=== PATIENT | female | born 1980 | race Hispanic/Latino ===

== ENCOUNTER 2020-06-26 14:13 | Emergency (ER) | payer BC ==
--- NOTE | 2020-06-26 14:49 | ER ---
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 Bleeding ca1 controlled. Coronavirus screen: Client denies travel out of the [place] in the last 14 days. At this time, the client does not indicate any symptoms associated with coronavirus-19. Ebola Screen: Patient negative for fever greater than or equal to 101.5 degrees Fahrenheit, and additional compatible Ebola Virus Disease symptoms Patient denies exposure to infectious person. Patient denies travel to an Ebola-affected area in the 21 days before illness onset. No symptoms or risks identified at this time. Complicating Factors: There are no complicating factors for this patient. Initial Sepsis Screen: Does the patient meet any 2 criteria? No. Patient's initial sepsis screen is negative. Does the patient have a suspected source of infection? No. Patient's initial sepsis screen is negative. Risk Assessment: Do you want to hurt yourself or someone else? Patient reports no desire to harm self or others. Onset of symptoms was June 26, 2020. 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 - Social history:: Smoking status: Patient denies any tobacco usage or history of. Screenin:30 Abuse screen: Denies threats or abuse. Nutritional screening: No deficits noted. rb3 Tuberculosis screening: No symptoms or risk factors identified. Fall Risk None identified. Assessment: 14:30 General: Appears in no apparent distress. comfortable, Behavior is calm, cooperative. rb3 Pain: Complains of pain in left hand Pain currently is 4 out of 10 on a pain scale. Neuro: Level of Consciousness is awake, alert, obeys commands, Oriented to person, place, time, situation. Cardiovascular: Capillary refill < 3 seconds Patient's skin is warm and dry. Respiratory: Airway is patent Respiratory effort is even, unlabored, Respiratory pattern is regular, symmetrical. GI: No signs and/or symptoms were reported involving the gastrointestinal system. : No signs and/or symptoms were reported regarding the genitourinary system. Musculoskeletal: Range of motion: Pt. reports pain when she tries to move her thumb. Injury Description: Laceration sustained to Left first web space is bleeding controlled. was sustained 30-60 minutes ago. is bleeding no active bleeding noted. Vital Signs: 14:30 BP 118 / 76; Pulse 81; Resp 16 S; Temp 97.9(TE); Pulse Ox 100% on R/A; Weight 80.74 kg ca1 (R); Height 5 ft. 5 in. (165.10 cm) (R); Pain 8/10; 14:30 Body Mass Index 29.62 (80.74 kg, 165.10 cm) ca1 ED Course: 14:16 Patient arrived in ED. ag5 14:28 Manfred Novoa PA is PHCP. [facility] 14:28 Alon Dudley MD is Attending Physician. [facility] 14:30 Patient has correct armband on for positive identification. Bed in low position. Call rb3 light in reach. Side rails up X 1. Pulse ox on. NIBP on. 14:37 Sonia Chang, RN is Primary Nurse. rb3 14:44 Triage completed. ca1 14:45 Arm band placed on right wrist. ca1 15:14 No provider procedures requiring assistance completed. Patient did not have IV access rb3 during this emergency room visit. Administered Medications: 14:40 Drug: Tetanus-Diphtheria Toxoid Adult 0.5 ml {Diet Aide: [employer]. Exp: rb3 10/01/2021. Lot #: [id number]. } Route: IM; Site: right deltoid; 15:00 Follow up: Response: No adverse reaction rb3 14:45 Drug: Lidocaine (1 %) 20 ml Volume: 20 ml; Route: Infiltration; rb3 Outcome: 14:48 Discharge ordered by . [facility] 15:14 Discharged to home ambulatory. rb3 15:14 Condition: stable 15:14 Discharge instructions given to patient, Instructed on discharge instructions, follow up and referral plans. wound care, Demonstrated understanding of instructions, follow-up care, wound care, Prescriptions given X none 15:15 Patient left the ED. rb3 Signatures: Manfred Novoa PA PA jmm Acob, Cheryl, RN RN ca1 Michael Balbuena ag5 Sonia Chang RN RN rb3
--- NOTE | 2020-06-26 14:49 | EDPHYS ---
Physician Documentation [facility] Name: Gracie Vides Age: 39 yrs Sex: Female : 1980 Arrival Date: 06/26/2020 Time: 14:16 Bed 20 Private MD: ED Physician Alon Dudley HPI: 06/26 14:31 This 39 yrs old Female presents to ER via Unassigned with complaints of jmm Laceration To Hand. 14:31 The patient or guardian reports injury, a laceration. Onset: The symptoms/episode jmm began/occurred acutely, just prior to arrival. Modifying factors: The symptoms are alleviated by nothing, the symptoms are aggravated by movement. Associated signs and symptoms: Pertinent negatives: cyanosis distally, decreased sensation distally, fever, numbness distally, tingling distally. The patient has not experienced similar symptoms in the past. This is a 39 year old female with no chronic medical conditions that presents to the ED with complaints of left hand laceration which occurred just prior to arrival. Patient states she cut her hand while using a knife. Denies other injury. . 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 - Social history:: Smoking status: Patient denies any tobacco usage or history of. ROS: 14:31 Constitutional: Negative for fever, chills, and weight loss, Cardiovascular: Negative jmm for chest pain, palpitations, and edema, Respiratory: Negative for shortness of breath, cough, wheezing, and pleuritic chest pain. 14:31 MS/extremity: Positive for injury or acute deformity, laceration. 14:31 All other systems are negative. Exam: 14:31 Constitutional: This is a well developed, well nourished patient who is awake, alert, jmm and in no acute distress. Head/Face: atraumatic. Eyes: EOMI, no conjunctival erythema appreciated ENT: Moist Mucus Membranes Neck: Trachea midline, Supple Chest/axilla: Normal chest wall appearance and motion. Cardiovascular: Regular rate and rhythm. No edema appreciated Respiratory: Normal respirations, no respiratory distress appreciated Abdomen/GI: Non distended, soft Back: Normal ROM 14:31 MS/ Extremity: Moves all extremities, no obvious deformities appreciated, no edema noted to the lower extremities Neuro: Awake and alert, normal gait Psych: Behavior is normal, Mood is normal, Patient is cooperative and pleasant 14:31 Skin: 1 cm laceration noted to the left 1st web space of the hand. Vital Signs: 14:30 BP 118 / 76; Pulse 81; Resp 16 S; Temp 97.9(TE); Pulse Ox 100% on R/A; Weight 80.74 kg ca1 (R); Height 5 ft. 5 in. (165.10 cm) (R); Pain 8/10; 14:30 Body Mass Index 29.62 (80.74 kg, 165.10 cm) ca1 Laceration: 14:46 Wound Repair of 1cm ( 0.4in ) subcutaneous laceration to Left first web space. Distal jmm neuro/vascular/tendon intact. Anesthesia: Local anesthetic administered with 1 mls of 1% lidocaine. Wound prep: Simple cleansing with betadine by me. Skin closed with 2 5-0 Prolene using simple sutures and sterile technique. Patient tolerated well. MDM: 14:29 Patient medically screened. [facility] 14:46 Data reviewed: vital signs, nurses notes. Counseling: I had a detailed discussion with julian the patient and/or guardian regarding: the historical points, exam findings, and any diagnostic results supporting the discharge/admit diagnosis, the need for outpatient follow up, to return to the emergency department if symptoms worsen or persist or if there are any questions or concerns that arise at home. ED course: Patient given wound return precautions. Patient understood and agrees with the plan of care. . 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 Exp: rb3 10/01/2021. Lot #: [id number]. } Route: IM; Site: right deltoid; 15:00 Follow up: Response: No adverse reaction rb3 14:45 Drug: Lidocaine (1 %) 20 ml Volume: 20 ml; Route: Infiltration; rb3 Disposition: 15:44 Co-signature as Attending Physician, Alon Dudley MD. rn Disposition: 06/26/20 14:48 Discharged to Home. Impression: Hand Laceration. - Condition is Stable. - Discharge Instructions: Laceration Care, Adult. - Medication Reconciliation Form, Thank You Letter, Antibiotic Education, Prescription Opioid Use form. - Follow up: Private Physician; When: 1 week; Reason: Recheck today's complaints, Continuance of care, Re-evaluation by your physician. Signatures: Manfred Novoa PA PA jmm Nieto, Roman, MD MD rn Acob, Bertha RN RN Sonia Cason RN RN rb3 Corrections: (The following items were deleted from the chart) 15:15 14:48 06/26/2020 14:48 Discharged to Home. Impression: Hand Laceration. Condition is rb3 Stable. Forms are Medication Reconciliation Form, Thank You Letter, Antibiotic Education, Prescription Opioid Use. Follow up: Private Physician; When: 1 week; Reason: Recheck today's complaints, Continuance of care, Re-evaluation by your physician. julian
[2020-06-26] MEDS ORDERED: LIDOCAINE 1% 20 ML MDV ONE (14:53)
[2020-06-26] MEDS ORDERED: TETANUS & DIPHTHERIA TOX,ADULT 0.5 ML VIAL ONE (14:54)
[2020-06-26 15:19] VITALS: BP 118/76; TEMP 97.9; O2SAT 100
== END 2020-06-26 15:15 | disposition home or self-care (01) ==
LOC: ER 14:13
PROC: 0JQK0ZZ Repair Left Hand Subcutaneous Tissue and Fascia, Open Approach (ICD-10-PCS; principal; 2020-06-26)
DX: S61.412A Laceration without foreign body of left hand, initial encounter (principal); W26.0XXA Contact with knife, initial encounter; Y93.9 Activity, unspecified; Y92.9 Unspecified place or not applicable; Z23 Encounter for immunization
CPT/HCPCS: 90471; 90714; 99283

== ENCOUNTER 2020-07-04 09:07 | Emergency (ER) | payer BC ==
--- NOTE | 2020-07-04 10:31 | ER ---
Nurse's Notes [facility] Name: Gracie Vides Age: 39 yrs Sex: Female : 1980 Arrival Date: 07/04/2020 Time: 09:13 Bed 23 Private MD: Diagnosis: Encounter for removal of sutures Presentation: 07/04 09:35 Chief complaint: Patient states: needs sutures removed from left hand, had sutures iw placed seven days ago. Coronavirus screen: At this time, the client does not indicate any symptoms associated with coronavirus-19. Ebola Screen: Patient negative for fever greater than or equal to 101.5 degrees Fahrenheit, and additional compatible Ebola Virus Disease symptoms Patient denies exposure to infectious person. Patient denies travel to an Ebola-affected area in the 21 days before illness onset. No symptoms or risks identified at this time. Initial Sepsis Screen: Does the patient meet any 2 criteria? No. Patient's initial sepsis screen is negative. Does the patient have a suspected source of infection? No. Patient's initial sepsis screen is negative. Risk Assessment: Do you want to hurt yourself or someone else? Patient reports no desire to harm self or others. Onset of symptoms was July 04, 2020. 09:35 Method Of Arrival: Ambulatory iw 09:35 Acuity: CLINT 4 iw Triage Assessment: 10:00 General: Appears in no apparent distress. iw 10:00 General: Behavior is calm, cooperative. iw Historical: - Allergies: 09:36 No Known Allergies; iw - Home Meds: 09:36 None [Active]; iw - PMHx: 09:36 None; iw - PSHx: 09:36 None; iw - Immunization history:: Adult Immunizations. - Social history:: Smoking status: Patient denies any tobacco usage or history of. Screenin:47 Abuse screen: Denies threats or abuse. Denies injuries from another. Nutritional iw screening: No deficits noted. Tuberculosis screening: No symptoms or risk factors identified. Fall Risk None identified. Assessment: 10:00 General: Appears in no apparent distress. comfortable, Behavior is calm, cooperative. iw Pain: Denies pain. Neuro: Level of Consciousness is awake, alert, obeys commands, Oriented to person, place, time, situation, Moves all extremities. Cardiovascular: Patient's skin is warm and dry. Respiratory: Respiratory effort is even, unlabored, Respiratory pattern is regular. Derm: Skin is healthy with good turgor. Vital Signs: 09:35 BP 106 / 71; Pulse 89; Resp 16; Temp 98.4; Pulse Ox 100% on R/A; Weight 80.74 kg; iw Height 5 ft. 5 in. (165.10 cm); 09:35 Body Mass Index 29.62 (80.74 kg, 165.10 cm) iw ED Course: 09:13 Patient arrived in ED. as 09:36 Triage completed. iw 09:36 Gail Doyle, RN is Primary Nurse. iw 09:40 Manfred Novoa PA is PHCP. [facility] 09:40 Dane Magdaleno MD is Attending Physician. [facility] 10:00 Arm band placed on. iw 10:47 No provider procedures requiring assistance completed. Patient did not have IV access iw during this emergency room visit. Administered Medications: No medications were administered Outcome: 10:30 Discharge ordered by MD. [facility] 10:47 Discharged to home ambulatory. iw 10:47 Condition: good 10:47 Discharge instructions given to patient. 10:48 Patient left the ED. iw Signatures: Manfred Novoa PA PA Akua Gandhi as Gail Doyle RN RN iw Corrections: (The following items were deleted from the chart) 09:36 09:35 Pulse 89bpm; Resp 16bpm; Pulse Ox 100% RA; Temp 98.4F; 80.74 kg; Height 5 ft. 5 iw in.; BMI: 29.6; iw 20:11 00:00 General: Appears in no apparent distress. comfortable, Behavior is calm, iw cooperative, iw 20: 00:00 Pain: Denies pain. iw iw 20: 00:00 Neuro: Level of Consciousness is awake, alert, obeys commands, Oriented to iw person, place, time, situation, Moves all extremities. iw 20:11 00:00 Cardiovascular: Patient's skin is warm and dry. iw iw 20: 00:00 Respiratory: Respiratory effort is even, unlabored, Respiratory pattern is iw regular, iw 20:11 00:00 Derm: Skin is healthy with good turgor, iw iw
--- NOTE | 2020-07-04 10:32 | EDPHYS ---
Physician Documentation [facility] Name: Gracie Vides Age: 39 yrs Sex: Female : 1980 Arrival Date: 07/04/2020 Time: 09:13 Bed 23 Private MD: ED Physician Dane Magdaleno HPI: 07/04 10:25 This 39 yrs old Female presents to ER via Ambulatory with complaints of Suture jmm Removal. 10:25 The patient has sutures on the left hand. Sutures/dev progress: The patient has no jmm c/o's. The wound is well-healing with no redness, swelling, discharge, or dehiscence reported. The patient has not experienced similar symptoms in the past. Patient received sutures 7 days ago. Denies fever, . Historical: - Allergies: 09:36 No Known Allergies; iw - Home Meds: 09:36 None [Active]; iw - PMHx: 09:36 None; iw - PSHx: 09:36 None; iw - Immunization history:: Adult Immunizations. - Social history:: Smoking status: Patient denies any tobacco usage or history of. ROS: 10:25 Constitutional: Negative for fever, chills, and weight loss, Cardiovascular: Negative jmm for chest pain, palpitations, and edema, Respiratory: Negative for shortness of breath, cough, wheezing, and pleuritic chest pain. 10:25 Skin: Positive for laceration(s). 10:25 All other systems are negative. Exam: 10:25 Constitutional: This is a well developed, well nourished patient who is awake, alert, jmm and in no acute distress. Head/Face: atraumatic. Eyes: EOMI, no conjunctival erythema appreciated ENT: Moist Mucus Membranes Neck: Trachea midline, Supple Chest/axilla: Normal chest wall appearance and motion. Cardiovascular: Regular rate and rhythm. No edema appreciated Respiratory: Normal respirations, no respiratory distress appreciated Abdomen/GI: Non distended, soft Back: Normal ROM 10:25 Skin: well healed laceration noted to the left 1st web space. 10:25 Neuro: Orientation: is normal, Mentation: is normal, Memory: is normal. 10:25 Psych: Behavior/mood is pleasant, cooperative. Vital Signs: 09:35 BP 106 / 71; Pulse 89; Resp 16; Temp 98.4; Pulse Ox 100% on R/A; Weight 80.74 kg; iw Height 5 ft. 5 in. (165.10 cm); 09:35 Body Mass Index 29.62 (80.74 kg, 165.10 cm) iw MDM: 09:43 Patient medically screened. [facility] 10:29 Data reviewed: vital signs, nurses notes. Counseling: I had a detailed discussion with julian the patient and/or guardian regarding: the historical points, exam findings, and any diagnostic results supporting the discharge/admit diagnosis, the need for outpatient follow up, to return to the emergency department if symptoms worsen or persist or if there are any questions or concerns that arise at home. ED course: 2 sutures removed. well healed laceration. patient tolerated procedure well. Administered Medications: No medications were administered Disposition: 18:56 Co-signature as Attending Physician, Dane Magdaleno MD I agree with the assessment and [facility] plan of care. Disposition: 07/04/20 10:30 Discharged to Home. Impression: Encounter for removal of sutures. - Condition is Stable. - Discharge Instructions: Suture Removal, Care After. - Medication Reconciliation Form, Thank You Letter, Antibiotic Education, Prescription Opioid Use form. - Follow up: Private Physician; When: As needed; Reason: Recheck today's complaints, Continuance of care, Re-evaluation by your physician. Signatures: Dane Magdaleno MD MD cha Mickail, Joel, PA PA jmm Williams, Irene, RN RN Corrections: (The following items were deleted from the chart) 10:48 10:30 07/04/2020 10:30 Discharged to Home. Impression: Encounter for removal of iw sutures. Condition is Stable. Forms are Medication Reconciliation Form, Thank You Letter, Antibiotic Education, Prescription Opioid Use. Follow up: Private Physician; When: As needed; Reason: Recheck today's complaints, Continuance of care, Re-evaluation by your physician. julian
[2020-07-04 10:55] VITALS: BP 106/71; TEMP 98.4; O2SAT 100
== END 2020-07-04 10:48 | disposition home or self-care (01) ==
LOC: ER 09:07
DX: S61.412D Laceration without foreign body of left hand, subsequent encounter (principal); Z48.02 Encounter for removal of sutures
CPT/HCPCS: 99281

== ENCOUNTER 2021-05-17 14:00 | Emergency (ER) | payer BC ==
[2021-05-17 16:46] LABS: SARS-COV-2 RT PCR NEGATIVE (NEGATIVE)
--- NOTE | 2021-05-17 17:41 | EDPHYS ---
Physician Documentation [facility] Name: Gracie Vides Age: 40 yrs Sex: Female : 1980 Arrival Date: 05/17/2021 Time: 14:05 Bed 29 Private MD: TREMAINE Physician Dane Magdaleno HPI: 05/17 17:38 This 40 yrs old Female presents to ER via Ambulatory with complaints of Sore jmm Throat, Difficulty Swallowing, Ear Pain. 17:38 The patient presents with sore throat. Onset: The symptoms/episode began/occurred jmm gradually, 5 week(s) ago. Modifying factors: The symptoms are alleviated by nothing, the symptoms are aggravated by nothing. Associated signs and symptoms: Pertinent positives: fever, Sore throat. It is unknown whether or not the patient has had similar symptoms in the past. 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 - Social history:: Smoking status: Patient denies any tobacco usage or history of. ROS: 17:38 Constitutional: Negative for fever, chills, and weight loss, Cardiovascular: Negative jmm for chest pain, palpitations, and edema, Respiratory: Negative for shortness of breath, cough, wheezing, and pleuritic chest pain. 17:38 ENT: Positive for sore throat. 17:38 Skin: Positive for Negative for rash. 17:38 All other systems are negative. Exam: 17:38 Constitutional: This is a well developed, well nourished patient who is awake, alert, jmm and in no acute distress. Head/Face: atraumatic. Eyes: EOMI, no conjunctival erythema appreciated ENT: Moist Mucus Membranes Neck: Trachea midline, Supple Chest/axilla: Normal chest wall appearance and motion. Cardiovascular: Regular rate and rhythm. No edema appreciated Respiratory: Normal respirations, no respiratory distress appreciated Abdomen/GI: Non distended, soft Back: Normal ROM Skin: General appearance color normal MS/ Extremity: Moves all extremities, no obvious deformities appreciated, no edema noted to the lower extremities Neuro: Awake and alert, normal gait Psych: Behavior is normal, Mood is normal, Patient is cooperative and pleasant 17:38 ENT: Posterior pharynx: erythema, that is mild. Vital Signs: 14:40 BP 115 / 80; Pulse 97; Resp 16; Temp 97.6; Pulse Ox 100% ; Weight 81.65 kg; Height 5 vg1 ft. 5 in. (165.10 cm); Pain 7/10; 14:40 Body Mass Index 29.95 (81.65 kg, 165.10 cm) vg1 MDM: 15:40 Patient medically screened. [facility] 17:39 Data reviewed: vital signs, nurses notes. Counseling: I had a detailed discussion with julian the patient and/or guardian regarding: the historical points, exam findings, and any diagnostic results supporting the discharge/admit diagnosis, lab results, radiology results, the need for outpatient follow up, to return to the emergency department if symptoms worsen or persist or if there are any questions or concerns that arise at home. 05/17 14:43 Order name: Strep; Complete Time: 15:36 vg1 05/17 15:26 Order name: Throat Culture EDMS 05/17 17:04 Order name: COVID-19/FLU A+B/RSV; Complete Time: 17:04 EDMS Administered Medications: No medications were administered Disposition: 05/18 09:12 Co-signature as Attending Physician, Dane Magdaleno MD I agree with the assessment and [facility] plan of care. Disposition Summary: 05/17/21 17:41 Discharge Ordered Location: Home [facility] Condition: Stable [facility] Diagnosis - Acute pharyngitis, unspecified [facility] Followup: [facility] - With: Private Physician - When: 2 - 3 days - Reason: Recheck today's complaints, Continuance of care, Re-evaluation by your physician Discharge Instructions: - Discharge Summary Sheet [facility] - Pharyngitis [facility] Forms: - Medication Reconciliation Form [facility] - Thank You Letter [facility] - Antibiotic Education [facility] - Prescription Opioid Use [facility] Prescriptions: - Amoxicillin 875 mg Oral Tablet - take 1 tablet by ORAL route every 12 hours for 10 days; 20 tablet; Refills: 0, [facility] Product Selection Permitted Signatures: Dispatcher [employer] Dane Canales MD MD cha Mickail, Joel, PA PA jmm Garcia, Victoria, RN RN vg1 Corrections: (The following items were deleted from the chart) 05/17 17:03 14:49 COVID-19/FLU A+B+MOL.LAB.BRZ ordered. EDMS EDMS 17: 17:00 COVID-19/FLU A+B+MOL.LAB.BRZ reviewed. julian EDMS
--- NOTE | 2021-05-17 17:41 | ER ---
Nurse's Notes [facility] Name: Gracie Vides Age: 40 yrs Sex: Female : 1980 Arrival Date: 05/17/2021 Time: 14:05 Bed 29 Private MD: Diagnosis: Acute pharyngitis, unspecified Presentation: 05/17 14:40 Chief complaint: Patient states: sore/itchy throat, difficulty swallowing, cough and vg1 sinus pressure x 5 days. Denies NVD. Coronavirus screen: Vaccine status: Patient reports receiving the 2nd dose of the covid vaccine. Client denies travel out of the [place] in the last 14 days. Ebola Screen: Patient negative for fever greater than or equal to 101.5 degrees Fahrenheit, and additional compatible Ebola Virus Disease symptoms. Initial Sepsis Screen: Does the patient meet any 2 criteria? No. Patient's initial sepsis screen is negative. Does the patient have a suspected source of infection? No. Patient's initial sepsis screen is negative. Risk Assessment: Do you want to hurt yourself or someone else? Patient reports no desire to harm self or others. Onset of symptoms was May 12, 2021. 14:40 Method Of Arrival: Ambulatory vg1 14:40 Acuity: CLINT 4 vg1 Triage Assessment: 14:42 General: Appears in no apparent distress. comfortable, Behavior is calm, cooperative. vg1 Pain: Complains of pain in throat Pain currently is 7 out of 10 on a pain scale. EENT: Throat is reddened. [employer]ER: 14:42 LMP 05/17/2021 vg1 Historical: - Allergies: 14:42 No Known Allergies; vg1 - Home Meds: 14:42 None [Active]; vg1 - PMHx: 14:42 None; vg1 - PSHx: 14:42 None; vg1 - Immunization history:: Client reports receiving the 2nd dose of the Covid vaccine. - Social history:: Smoking status: Patient denies any tobacco usage or history of. Screenin:04 Abuse screen: Denies threats or abuse. Nutritional screening: No deficits noted. as6 Tuberculosis screening: No symptoms or risk factors identified. Fall Risk None identified. Assessment: 16:09 Reassessment: Patient and/or family updated on plan of care and expected duration. Pain as6 level reassessed. Patient is alert, oriented x 3, equal unlabored respirations, skin warm/dry/pink. Vital Signs: 14:40 BP 115 / 80; Pulse 97; Resp 16; Temp 97.6; Pulse Ox 100% ; Weight 81.65 kg; Height 5 vg1 ft. 5 in. (165.10 cm); Pain 7/10; 14:40 Body Mass Index 29.95 (81.65 kg, 165.10 cm) vg1 ED Course: 14:05 Patient arrived in ED. am2 14:42 Triage completed. vg1 14:42 Arm band placed on. vg1 15:35 Nicole Huston, RN is Primary Nurse. ll1 15:35 Manfred Novoa PA is PHCP. [facility] 15:35 Dane Magdaleno MD is Attending Physician. [facility] 15:35 Patient placed in an exam room, on a stretcher. ll1 18:04 No provider procedures requiring assistance completed. Patient did not have IV access as6 during this emergency room visit. Administered Medications: No medications were administered Outcome: 17:41 Discharge ordered by . [facility] 18:05 Discharged to home ambulatory, with family. as6 18:05 Condition: stable 18:05 Discharge instructions given to patient, family, Instructed on discharge instructions, follow up and referral plans. medication usage, Demonstrated understanding of instructions, follow-up care, medications, Prescriptions given X 1. 18:05 Patient left the ED. as6 Signatures: Manfred Novoa PA PA jmm Moreno, Amanda 2 Deirdre Guerrero RN RN 1 Nicole Huston RN RN 1 Jarad Kaufman RN RN as6
[2021-05-17 18:13] VITALS: BP 115/80; TEMP 97.6; O2SAT 100
== END 2021-05-17 18:05 | disposition home or self-care (01) ==
LOC: ER 14:00
DX: J02.9 Acute pharyngitis, unspecified (principal); B97.4 Respiratory syncytial virus as the cause of diseases classified elsewhere; Z20.822 Contact with and (suspected) exposure to COVID-19
CPT/HCPCS: 87070; 87081; 0241U; 99282